=== PATIENT | female | born 1995 | race Caucasian/White ===

== ENCOUNTER 2016-11-11 13:21 | Emergency (ER) | payer MEDICAID ==
--- NOTE | 2016-11-11 13:42 | Emergency Department Record ---
History of Present Illness - General Chief complaint: ENT Stated complaint: COUGH,SORE THROAT,CONGESTION Time Seen by Provider: 11/11/16 13:34 Source: Patient Mode of Arrival: Ambulatory Limitations: No limitations - History of Present Illness Initial comments: 21 yo female presents with sore throat and cough for about 5 days. She is 30 weeks . No fevers. She is feeling frequent baby movements. No bleeding or fluid leakage. She has nasal congestion. The cough is non productive. NVD. Her one year old has been sick with similar symptoms and was diagnosed with a double ear infection. She in followed by [facility] in [place]. She is on her last day of Zithromax that was provided by an urgent care. MD complaint: Sore throat, Other (cough) Onset/Timin -: Days(s) Severity: Moderate Consistency: Constant Improves with: None Worsens with: None Context- Ear: Recent illness Associated Symptoms: Cough, Rhinorrhea, Sore throat - Related Data Home Medications Medication Instructions Recorded Confirmed Last Taken Folic Acid [Folic Acid] 1 mg PO DAILY 03/27/15 11/11/16 Unknown Vit #76/Iron,Carb/FA 1 each PO DAILY 03/27/15 11/11/16 Unknown [Prenatabs Rx Tablet] Meclizine HCl [Antivert] 25 mg PO Q8H 07/29/16 11/11/16 07/29/16 Azithromycin [Azithromycin] 250 mg PO DAILY 11/11/16 11/11/16 Unknown Allergies Allergy/AdvReac Type Severity Reaction Status Date / Time amoxicillin Allergy ANAPHYLAXIS Verified 03/27/15 23:14 amoxicillin trihydrate Allergy ANAPHYLAXIS Verified 03/27/15 23:14 [From Augmentin] potassium clavulanate Allergy ANAPHYLAXIS Verified 03/27/15 23:14 [From Augmentin] Travel Screening - Travel/Exposure Within Last 30 Days Have you traveled within the last 30 days?: No Review of Systems Constitutional: Denies: Chills, Fever, Malaise, Night sweats, Weakness Eyes: Denies: Eye discharge, Eye pain, Photophobia, Vision change ENT: Reports: Congestion, Ear pain, Throat pain Respiratory: Reports: Cough. Denies: Dyspnea, Hemoptysis, Stridor, Wheezes Cardiovascular: Denies: Chest pain, Palpitations, Syncope Endocrine: Denies: Fatigue Gastrointestinal: Denies: Abdominal pain, Diarrhea, Nausea, Vomiting Genitourinary: Denies: Dysuria Musculoskeletal: Denies: Arthralgia, Back pain, Myalgia, Neck pain Skin: Denies: Bruising, Change in color, Rash Neurological: Denies: Confusion, Headache Psychiatric: Denies: Anxiety Hematological/Lymphatic: Denies: Blood Clots, Easy bleeding, Easy bruising, Swollen glands Past Medical History - SOCIAL HISTORY Smoking Status: Former smoker Alcohol Use: None Drug Use: None - RESPIRATORY Hx Respiratory Disorders: No - CARDIOVASCULAR Hx Cardio Disorders: No Comment:: used to have atrail septal defect. - NEURO Hx Neuro Disorders: No Hx Dizziness: Yes (vertigo) Comment:: born with microcephally. - GI Hx GI Disorders: No - Hx Genitourinary Disorders: No - ENDOCRINE Hx Endocrine Disorders: No - MUSCULOSKELETAL Hx Musculoskeletal Disorders: Yes Comment:: scoliosis, spina bifida - PSYCH Hx Psych Problems: Yes Comment:: add, adhd. - HEMATOLOGY/ONCOLOGY Hx Hematology/Oncology Disorders: No Family Medical History Any Significant Family History?: Yes Family Hx Comment (NOT TO BE USED IN PLACE OF ITEMS BELOW): "everything" Physical Exam - General General Appearance: Alert, Oriented x3, Cooperative, No acute distress Limitations: No limitations - Head Head exam: Normal inspection - Eye Eye exam: Normal appearance, PERRL. negative: Conjunctival injection, Periorbital swelling, Scleral icterus - ENT ENT exam: Mucous membranes moist, TM's normal bilaterally. negative: Normal orophraynx Ear exam: Normal external inspection. negative: External canal tenderness Nasal Exam: Discharge (clear nasal drainage). negative: Dried blood Mouth exam: Normal external inspection, Tongue normal Teeth exam: Normal inspection. negative: Dental caries Throat exam: Tonsillar erythema (very mild erythema, no exudate, no mass, no abscess, no ulcerations). negative: Tonsillomegaly, Tonsillar exudate, R peritonsillar mass, L peritonsillar mass - Neck Neck exam: Normal inspection. negative: Lymphadenopathy, Meningismus, Tenderness - Respiratory Respiratory exam: Normal lung sounds bilaterally. negative: Respiratory distress, Rhonchi, Stridor, Wheezes - Cardiovascular Cardiovascular Exam: Regular rate, Normal rhythm, Normal heart sounds - Rectal Rectal exam: Deferred - exam: Deferred - Extremities Extremities exam: Normal inspection, Full ROM, Normal capillary refill. negative: Tenderness - Back Back exam: Reports: Normal inspection, Full ROM. Denies: Muscle spasm, Rash noted, Tenderness - Neurological Neurological exam: Alert, Normal gait, Oriented X3 - Psychiatric Psychiatric exam: Normal affect, Normal mood - Skin Skin exam: Dry, Intact, Normal color, Warm Course Vital Signs 11/11/16 13:25 Temperature 98.3 F Pulse Rate 110 H Respiratory 18 Rate Blood Pressure 110/63 Pulse Ox 98 - Reevaluation(s) Reevaluation #1: Vitals reviewed. HR appropriate for 30 weeks gestation. No fever. No hypoxia. Syndrome is likely viral given her child has the same. Viral swabs sent with strep screen. She has great baby movement and no bleeding or fluid leak. 11/11/16 13:47 Reevaluation #2: RSV,Influenza, and Strep are negative. The patient was instructed to call her OB She is to finish he Zithromax tomorrow as scheduled Given her pharyngitis one dose of Prednisone provided 11/11/16 14:31 11/11/16 14:41 Disposition Disposition: Discharge Clinical Impression: Pharyngitis, Bronchitis Disposition: Home, Self-Care Condition: (1) Good Instructions: Pharyngitis (ED), Acute Bronchitis (ED) Additional Instructions: Call your OB on Saturday for close follow up Return if worse, vomiting, short of breath or any concerns Stay well hydrated Call your OB for close follow up in the next 2 days Discuss all new medications with your OB prior to taking them Forms: Patient Portal Access Time of Disposition: 14:43
[2016-11-11 14:06] LABS: STREP A SCREEN NEGATIVE (NEGATIVE)
[2016-11-11 14:11] LABS: INFLUENZA A NEGATIVE (NEGATIVE); INFLUENZA B NEGATIVE (NEGATIVE); RESPIRATORY SYNCYTIAL VIRUS NEGATIVE (NEGATIVE)
[2016-11-11] MEDS ORDERED: PREDNISONE 20 MG TAB PO ONE (14:41)
== END 2016-11-11 14:52 | disposition home or self-care (01) ==
LOC: ER 13:21
DX: O99.513 Diseases of the respiratory system complicating pregnancy, third trimester (principal); J20.9 Acute bronchitis, unspecified; J02.9 Acute pharyngitis, unspecified; Z3A.30 30 weeks gestation of pregnancy; Z87.891 Personal history of nicotine dependence
CPT/HCPCS: 99283 ×2; 86756; 87880; 87400; J7512

== ENCOUNTER 2016-12-08 22:12 | Emergency (ER) | payer MEDICAID ==
--- NOTE | 2016-12-08 22:53 | Emergency Department Record ---
History of Present Illness - General Chief complaint: OB/Uterine Contract/ Stated complaint: ABD PAIN Time Seen by Provider: 12/08/16 22:48 Source: Patient Mode of Arrival: Ambulatory Travel/Exposure to [facility] Within 21 Days of Symptoms: No - History of Present Illness Initial comments: The patient is a due 01[birth year]21-[birth year] who has been feeling intermittent cramping like labor pains but very irregular and not frequent. She sees Ob in [place] for her care and is scheduled to deliver at [facility]. Her first baby was delivered by an emergency C section. She denies any water breaking, any vaginal bleeding. She has been feeling the baby moving today. Initial FHT's in the l60's. MD Complaint: "Contractions" Onset/Timin -: Hour(s) Location: Abdomen Radiation: Back Severity scale (1-10): 5 Quality: Aching Consistency: Constant Vaginal bleeding: None Number of weeks : 33 Pre- care: Followed by OB - Related Data : 2 Para: 1 Ab: 1 Home Medications Medication Instructions Recorded Confirmed Last Taken Folic Acid [Folic Acid] 1 mg PO DAILY 03/27/15 12/08/16 Unknown Vit #76/Iron,Carb/FA 1 each PO DAILY 03/27/15 12/08/16 Unknown [Prenatabs Rx Tablet] Meclizine HCl [Antivert] 25 mg PO Q8H 07/29/16 12/08/16 07/29/16 Allergies Allergy/AdvReac Type Severity Reaction Status Date / Time amoxicillin Allergy ANAPHYLAXIS Verified 03/27/15 23:14 amoxicillin trihydrate Allergy ANAPHYLAXIS Verified 03/27/15 23:14 [From Augmentin] potassium clavulanate Allergy ANAPHYLAXIS Verified 03/27/15 23:14 [From Augmentin] Review of Systems Reviewed: No additional complaints except as noted below Constitutional: Reports: As per HPI. Denies: Chills, Fever, Malaise, Night sweats, Weakness, Weight change Eyes: Reports: As per HPI. Denies: Eye discharge, Eye pain, Photophobia, Vision change ENT: Reports: As per HPI. Denies: Congestion, Dental pain, Ear pain, Epistaxis , Hearing loss, Throat pain Respiratory: Reports: As per HPI. Denies: Cough, Dyspnea, Hemoptysis, Stridor, Wheezes Cardiovascular: Reports: As per HPI. Denies: Arrhythmia, Chest pain, Dyspnea on exertion, Edema, Murmurs, Orthopnea, Palpitations, Paroxysmal nocturnal dyspnea, Rheumatic Fever, Syncope Endocrine: Reports: As per HPI. Denies: Fatigue, Heat or cold intolerance, Polydipsia, Polyuria Gastrointestinal: Reports: As per HPI. Denies: Abdominal pain, Constipation, Diarrhea, Hematemesis, Hematochezia, Melena, Nausea, Vomiting Genitourinary: Reports: As per HPI. Denies: Abnormal menses, Discharge, Dyspareunia, Dysuria, Frequency, Hematuria, Incontinence, Retention, Urgency Musculoskeletal: Reports: As per HPI. Denies: Arthralgia, Back pain, Gout, Joint swelling, Myalgia, Neck pain Skin: Reports: As per HPI. Denies: Bruising, Change in color, Change in hair/ nails, Lesions, Pruritus, Rash Neurological: Reports: As per HPI. Denies: Abnormal gait, Confusion, Headache, Numbness, Paresthesias, Seizure, Tingling, Tremors, Vertigo, Weakness Psychiatric: Reports: As per HPI. Denies: Anxiety, Auditory hallucinations, Depression, Homicidal thoughts, Suicidal thoughts, Visual hallucinations Hematological/Lymphatic: Reports: As per HPI. Denies: Anemia, Blood Clots, Easy bleeding, Easy bruising, Swollen glands Past Medical History - SOCIAL HISTORY Smoking Status: Former smoker - [employer] History : 2 Para: 1 A: 1 - RESPIRATORY Hx Respiratory Disorders: No - CARDIOVASCULAR Hx Cardio Disorders: No Comment:: has atrial septal defect. - NEURO Hx Neuro Disorders: Yes Hx Dizziness: Yes (vertigo) Comment:: born with microcephally. - GI Hx GI Disorders: No - Hx Genitourinary Disorders: No - ENDOCRINE Hx Endocrine Disorders: No - MUSCULOSKELETAL Hx Musculoskeletal Disorders: Yes Comment:: scoliosis, spina bifida - PSYCH Hx Psych Problems: Yes Comment:: add, adhd. - HEMATOLOGY/ONCOLOGY Hx Hematology/Oncology Disorders: No Family Medical History Any Significant Family History?: Yes Family Hx Comment (NOT TO BE USED IN PLACE OF ITEMS BELOW): "everything" Physical Exam - General General Appearance: Alert, Oriented x3, Cooperative, No acute distress - Head Head exam: Normal inspection - Eye Eye exam: Normal appearance, PERRL Pupils: Normal accommodation - ENT ENT exam: Normal exam, Mucous membranes moist, Normal external ear exam, Normal orophraynx, TM's normal bilaterally Ear exam: Normal external inspection. negative: External canal tenderness Nasal Exam: Normal inspection. negative: Discharge, Sinus tenderness Mouth exam: Normal external inspection, Tongue normal Teeth exam: Normal inspection. negative: Dental caries Throat exam: Normal inspection. negative: Tonsillar erythema, Tonsillar exudate - Neck Neck exam: Normal inspection, Full ROM. negative: Tenderness - Respiratory Respiratory exam: Normal lung sounds bilaterally. negative: Respiratory distress - Cardiovascular Cardiovascular Exam: Normal rhythm, Normal heart sounds, Tachycardia - GI/Abdominal GI/Abdominal exam: Soft, Normal bowel sounds, Other (gravid uterus, consistent with her 33 week dates. uterus soft, nontender). negative: Tenderness - Rectal Rectal exam: Deferred - exam: Deferred - Extremities Extremities exam: Normal inspection, Full ROM, Normal capillary refill. negative: Calf tenderness, Pedal edema, Tenderness - Back Back exam: Reports: Normal inspection, Full ROM. Denies: Muscle spasm, Rash noted, Tenderness - Neurological Neurological exam: Alert, Normal gait, Oriented X3, Reflexes normal - Psychiatric Psychiatric exam: Normal affect, Normal mood - Skin Skin exam: Dry, Intact, Normal color, Warm Course Vital Signs 12/08/16 22:16 Temperature 97.8 F Pulse Rate 115 H Respiratory 16 Rate Blood Pressure 122/65 Pulse Ox 97 - Reevaluation(s) Reevaluation #1: DW Dr. Bonilla who accepts patient in transfer to [facility] by ambulance. IV fluids infusing, labs pending and will be faxed later. 12/08/16 22:52 Medical Decision Making - Management Options MDM Management: Additional Work-up Planned (e.g. ADM/Transfer/OP Study) ( Transfer to [facility] for Dr. Bonilla evaluation) Disposition Disposition: Transfer Clinical Impression: Qualifiers: Weeks of gestation: 33 weeks Qualified Code(s): Z3A.33 - 33 weeks gestation of labor in third trimester Qualifiers: labor delivery status: without delivery Qualified Code(s): O60.03 - labor without delivery, third trimester Disposition: Acute Care Hospital Transfer Transfer To: [facility] Reason For Transfer: labor Accepting Physician: Dr. Bonilla Time Discussed w/Accepting Physician: 22:56 Condition: (1) Good Forms: Patient Portal Access
[2016-12-08] MEDS ORDERED: 0.9 % SODIUM CHLORIDE 1,000 ML BAG IV ONE (23:00)
[2016-12-08 23:08] LABS: HEMATOCRIT 27.7 % (35.0-47.0); HEMOGLOBIN 9.1 gm/dl (11.6-16.0); MEAN CELL VOLUME 97.9 fl (81-97); MEAN CORPUSCULAR HGB CONC 32.9 g/dl (32-36); PLATELET COUNT 229 K/uL (130-400); RED BLOOD COUNT 2.83 M/uL (3.80-5.40); RED CELL DISTRIBUTION WIDTH 14.5 % (11.5-14.5); WHITE BLOOD COUNT W/O DIFF 8.9 K/uL (4.2-12.2)
[2016-12-08 23:16] LABS: MEAN CORPUSCULAR HEMOGLOBIN 32.1 pg (27-33)
[2016-12-08 23:21] LABS: ANION GAP 13.4 (7-16); BLOOD UREA NITROGEN 5 mg/dL (7-17); CARBON DIOXIDE 19.6 mmol/L (22-30); CREATININE 0.5 mg/dL (0.52-1.04); EST GLOMERULAR FILTRATION RATE > 60 ml/min; GLUCOSE,RANDOM 104 mg/dL (70-110)
== END 2016-12-08 23:44 | disposition short-term general hospital (02) ==
LOC: ER 22:12
DX: O60.03 Preterm labor without delivery, third trimester (principal); Z3A.33 33 weeks gestation of pregnancy
CPT/HCPCS: 80048; 85027; 99285; J7030